=== PATIENT | male | born 1950 | race Caucasian/White ===

== ENCOUNTER 2020-12-10 06:53 | Outpatient (REF) | payer MEDICARE, SELFPAY ==
[2020-12-10 08:29] LABS: Glucose Urine UA NEG (NEG); Leukocyte Esterase Urine NEG (NEG); Nitrite Urine NEG (NEG); Specific Gravity - Urine 1.025 (1.005-1.025); Urine Blood TRACE (NEG); Urine Ketones NEG (NEG); Urine Protein TRACE MG/DL (NEG-TRACE)
[2020-12-10 08:31] LABS: Appearance Urine CLEAR; Color Urine YELLOW
[2020-12-10 08:42] LABS: Mucus Urine 1+ /LPF; WBC Urine 0 /HPF (0-4)
== END 2020-12-10 06:54 | disposition home or self-care (01) ==
LOC: HO.LAB 06:53
PROVIDERS: PCP Nurse Practitioner Family; Visit Provider Urology
DX: R30.0 Dysuria (principal)
CPT/HCPCS: 81001; 87086

== ENCOUNTER 2023-04-23 07:02 | Outpatient (REF) | payer MEDICARE, SELFPAY | END 2023-04-23 07:03 | disposition home or self-care (01) | LOC: HO.LAB 07:02 | PROVIDERS: PCP Nurse Practitioner Family; Visit Provider Nurse Practitioner Family | DX: Z13.220 Encounter for screening for lipoid disorders (principal); Z13.29 Encounter for screening for other suspected endocrine disorder; Z13.0 Encounter for screening for diseases of the blood and blood-forming organs and certain disorders involving the immune mechanism; E78.00 Pure hypercholesterolemia, unspecified | CPT/HCPCS: 36415; 80053; 80061; 84443; 85025 ==

== ENCOUNTER 2023-04-25 06:45 | Outpatient (REF) | payer MEDICARE, SELFPAY | END 2023-04-25 06:46 | disposition home or self-care (01) | LOC: HO.LAB 06:45 | PROVIDERS: PCP Nurse Practitioner Family; Visit Provider Nurse Practitioner Family | DX: Z01.818 Encounter for other preprocedural examination (principal); H02.409 Unspecified ptosis of unspecified eyelid | CPT/HCPCS: 93005 ==

== ENCOUNTER → 2023-04-25 06:55 | Outpatient (BNV) | payer MEDICARE, SELFPAY | PROVIDERS: PCP Nurse Practitioner Family; Visit Provider Internal Medicine Cardiovascular Disease | DX: I49.1 Atrial premature depolarization (principal); R94.31 Abnormal electrocardiogram [ECG] [EKG] | CPT/HCPCS: 93010 ==

== ENCOUNTER 2023-04-27 09:04 | Outpatient (REF) | payer MEDICARE, SELFPAY ==
[2023-04-27 12:35] LABS: Alanine Aminotransferase 21 U/L (0-40); Albumin Level 4.1 g/dL (3.5-5.0); Alkaline Phosphatase 93 U/L (39-117); Anion Gap 12 (12-20); Aspartate Amino Transferase 32 U/L (5-37); Bilirubin Total 0.8 mg/dL (0.0-1.0); Blood Urea Nitrogen 16 mg/dL (9-16); Calcium 9.7 mg/dL (8.4-10.2); Carbon Dioxide 26 mmol/L (22-29); Chloride 106 mmol/L (96-108); Estimated Glomerular Filt Rate > 60; Glucose Random 92 mg/dL (60-115); Potassium 3.8 mmol/L (3.3-5.1); Sodium 140 mmol/L (135-145); Total Protein 7.2 g/dL (6.5-8.0)
== END 2023-04-27 09:05 | disposition home or self-care (01) ==
LOC: HO.HMGCLDS 09:04
PROVIDERS: PCP Nurse Practitioner Family; Visit Provider Nurse Practitioner Family
DX: E83.52 Hypercalcemia (principal)
CPT/HCPCS: 36415; 80053

== ENCOUNTER 2023-07-04 04:03 | Emergency (ER) | payer MEDICARE, SELFPAY ==
[2023-07-04 04:16] VITALS: BP 191/99; PULSE 86; RESP 20; TEMP 36.6; O2SAT 97; BMI 27.0
[2023-07-04 04:27] VITALS: BP 177/105; PULSE 87; RESP 18; O2SAT 97
[2023-07-04 04:35] LABS: Appearance Urine Turbid; Color Urine RED; Glucose Urine UA 100 mg/dL (Negative); Leukocyte Esterase Urine Moderate (2+) (Negative); UMIC TRIGGER UACC YES; Urine Blood Large (3+) (Negative); Urine Ketones 15 mg/dL (Negative); Urine Protein 300 (3+) mg/dL (Neg-Trace)
[2023-07-04 04:37] LABS: Nitrite Urine Positive (Negative)
[2023-07-04 04:38] LABS: Bacteria Urine Trace (None Seen); Hyaline Casts Urine 0-2 /LPF (0-2); RBC Urine >20 /HPF (0-2); Squamous Epithelial Cell Urine 0-2 /HPF (0-2); UACC Culture Trigger YES; WBC Urine 0-5 /HPF (0-5)
[2023-07-04 05:05] LABS: Hematocrit 42.9 % (42.0-52.0); Hemoglobin 15.2 g/dl (14.0-18.0); Mean Corpuscular HGB Conc 35.4 g/dl (31.0-36.0); Mean Corpuscular Hemoglobin 31.3 pg (27.0-33.0); Mean Corpuscular Volume 88.5 fL (80.0-98.0); Mean Platelet Volume 10.3 fL (9.4-12.4); Platelet Count 266 X10*3/uL (160-400); Red Blood Count 4.85 X10*6/uL (4.60-5.80); Red Cell Distribution Width 12.5 % (11.0-16.0); White Blood Count 8.8 X10*3/uL (4.8-10.8)
--- NOTE | 2023-07-04 05:12 | PC.NURSE ---
Pt with hematuria, reporting clots prior to coming with pain. Pt reports no clots and no pain but hematuria still present. labs and urine sent.
[2023-07-04 05:20] LABS: Alanine Aminotransferase 45 U/L (0-40); Albumin Level 4.1 g/dL (3.5-5.0); Alkaline Phosphatase 107 U/L (39-117); Anion Gap 14 (12-20); Aspartate Amino Transferase 65 U/L (5-37); Bilirubin Total 0.5 mg/dL (0.0-1.0); Blood Urea Nitrogen 9 mg/dL (9-16); Calcium 9.4 mg/dL (8.4-10.2); Carbon Dioxide 23 mmol/L (22-29); Chloride 104 mmol/L (96-108); Creatinine Clr Calc Pharmacy 89.6; Estimated Glomerular Filt Rate > 60; Glucose Random 131 mg/dL (60-115); Potassium 3.6 mmol/L (3.3-5.1); Sodium 137 mmol/L (135-145); Total Protein 7.1 g/dL (6.5-8.0)
[2023-07-04 06:25] VITALS: BP 147/82; PULSE 85; RESP 18; TEMP 36.7; O2SAT 98
--- NOTE | 2023-07-04 06:26 | MHC.EDTECH ---
Hourly rounds and vitals completed. Patient urinated 600cc of bloody urine,patient had a few clots in urinal, RN is aware.
--- NOTE | 2023-07-04 06:37 | ED.MALEGU ---
HPI - Male Genitourinary General Chief complaint: Urogenital-Male Stated complaint: Blood in urine Time Seen by Provider: 07/04/23 06:36 Source: patient, RN notes reviewed and old records reviewed Mode of arrival: ambulatory History of Present Illness HPI Narrative: 73-year-old male with a past medical history a BPH s/p cystoscopy, HLD, HTN, depression, transient global amnesia, presenting to the ED complaining of gross hematuria with clots x2 days. Admits to drinking apple cider vinegar for URI symptoms which he believes triggered symptoms. Denies taking anticogulation. reports mild dysuria. Denies fever /chills, abdominal pain, flank pain, nausea / vomiting, lightheadedness/dizziness Related Data Previous Rx's Medication Instructions Recorded cefuroxime axetil 250 mg tablet 250 mg PO BID 4 days #8 tabs 07/04/23 Allergies Allergy/AdvReac Type Severity Reaction Status Date / Time No Known Allergies Allergy Verified 07/04/23 04:16 [No Known Allergies*] Review of Systems Review of Systems: Constitutional: No Fever, No Chills, No Fatigue, No Malaise ENT/Mouth: No Ear Pain, No Nasal Congestion,No sore throat, No Rhinorrhea, No Swallowing Difficulty Eyes: No Eye Pain, No Swelling, No Redness, No Vision Changes Cardiovascular: No Chest Pain, No SOB Respiratory: No Cough, No Sputum, No Dyspnea Gastrointestinal: No Nausea, No Vomiting, No Diarrhea, No Constipation, No Abdominal pain Genitourinary: No irregular bleeding, + Dysuria, No Urinary Frequency, + Hematuria, No Urinary Incontinence/retention, No Flank Pain Musculoskeletal: No joint pain, No Myalgias, No Joint Swelling Skin: No Skin Lesions, No rash Neuro: No Weakness, No Dizziness, No Headache Yes all other systems are reviewed and are negative Constitutional: Constitutional: Reports as per [facility] Past Medical History Attestation statement: The following information was validated with the patient. Source: old records reviewed Medical History Transient global amnesia History of depression White coat 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 hypertension Cataracts, both eyes High cholesterol Enlarged prostate Surgical History H/O transurethral resection of prostate Hx of tonsillectomy Family History Family History Mother Glaucoma Cataract Social History Social History Housing: House Alcohol intake: current Alcohol intake frequency: holidays/special occasions only Alcohol type: hard liquor Patient Tobacco Use Status: Never used Tobacco Smoked in Last 30 Days: No e-Cigarette/Vaping Use: Never Used Use of substances other than those prescribed or required for medical reasons: No Advance Directives: No Advance Directives Information Provided: Yes service: Yes Current occupational status: retired Cognitive needs: No Hearing needs: No Vision needs: Yes Physical Exam Vital Signs: Vital Signs: Last Vital Signs Temp 97.9 F 07/04/23 13:27 Pulse 79 07/04/23 13:27 Resp 16 07/04/23 13:27 BP 169/84 H 07/04/23 13:27 Pulse Ox 96 07/04/23 13:27 O2 Del Method Room Air 07/04/23 13:27 BMI result Body Mass Index 27.0 Const: General: cooperative, healthy appearing and no acute distress Orientation/consciousness: patient oriented x3 Limitations: no limitations HEENT: Head: Yes normal to inspection and Yes atraumatic Ears: hearing grossly normal bilaterally General nose exam: Normal external nose present Face and sinus: Yes normal facial exam Eyes: General: appearance normal, both eyes and all related structures EOM: EOMs intact bilaterally Neck: Neck: Yes normal visual inspection and Yes no meningeal signs Resp: Effort & Inspection: normal respiratory effort and no respiratory distress Auscultation: clear to auscultation bilaterally Cardio: Rate: regular rate Heart sounds: S1 normal heart sound present and S2 normal heart sound present GI: Inspection: Yes normal to inspection Palpation (GI): Soft to palpation, nontender, no guarding and not rigid : General: Yes no CVA tenderness Back/Spine/Pelvis: Back: no CVA tenderness Skin: Rashes: no rashes Wounds: no wounds Neuro: General: patient oriented x3, tone normal and no meningeal signs Cranial nerves: Yes CN's II-XII intact bilaterally Gait exam (Neuro): Normal gait present Extrem: General: Yes normal to inspection Course Course Course Narrative: -1974-- multiple times at [facility] placement for CBI however unsuccessful. Case discussed with Dr. Maher who is currently in the OR, will present to the ED after case - no leukocytosis. H&H stable. Mild elevation in AST/ ALT. Labs otherwise reassuring. - UA infected > given IV Rocephin -Dr. Maher placed 2-way catheter under video guidance in the ED, states no active bleeding in the bladder > CBI not needed >> recommended manual irrigation and PO abx x3-5 days & f/u in the office > manual irrigation performed in the ED with improvement in gross hematuria, pink tinged. Results discussed with patient including worrisome signs and symptoms and strict return precautions, and when to return to the emergency department. They verbalized understanding and feel safe for discharge at this time. Medications Administered Discontinued Medications Generic Name Dose Route Start Last Admin Trade Name Freq PRN Reason Stop Dose Admin Ceftriaxone Sodium 1 gm/ 50 mls @ 100 mls/hr 07/04/23 06:46 07/04/23 08:51 Sodium Chloride IV 07/04/23 07:15 Infused ONCE ONE Infusion Lidocaine HCl 10 ml 07/04/23 08:00 07/04/23 08:51 Lidocaine Hcl 2 % Urojet 10 Ml Jel.Pf.Cesilia TOPICAL 07/04/23 08:01 10 ml ONCE ONE Administration Medical Decision Making Medical Decision Making [facility] Narrative: 73-year-old male with a past medical history a BPH s/p cystoscopy, HLD, HTN, depression, transient global amnesia, presenting to the ED complaining of gross hematuria with clots x2 days. on exam vital signs stable, NAD, nontoxic appearing, abdomen soft/nontender, no CVAT. Gross hematuria noted. Concern for BPH vs UTI vs anemia. Lower suspicion for retention/renal stone. Unlikely to spiculated torsion, appendicitis/ diverticulitis plan: Labs, UA, CBI, +/- Consult Urology Please refer to course for remaining clinical decision making, interpretation of labs/imaging results, and discussions with consultants and/or family members. Differential Diagnosis Differential Diagnoses: The differential diagnosis associated with the presentation includes As above Admission/Observation Consideration of admission/observation: Escalation of care including admission/observation considered Lab Data [facility] Lab Attestation statement: I reviewed the patient's lab results. 07/04/23 05:00 07/04/23 05:00 Labs: Lab Results 07/04/23 07/04/23 07/04/23 Range/Units 04:22 05:00 07:20 WBC 8.8 (4.8-10.8) X10*3/uL RBC 4.85 (4.60-5.80) X10*6/uL Hgb 15.2 (14.0-18.0) g/dl Hct 42.9 (42.0-52.0) % MCV 88.5 (80.0-98.0) fL MCH 31.3 (27.0-33.0) pg MCHC 35.4 (31.0-36.0) g/dl RDW 12.5 (11.0-16.0) % Plt Count 266 (160-400) X10*3/uL MPV 10.3 (9.4-12.4) fL Absolute Nucleated RBC 0.000 (0.0-0.012) X10*3/uL Nucleated RBC % (auto) 0.0 (0.0-0.2) /100WBC PT (11.1-13.3) SEC INR (0.9-1.1) Sodium 137 (135-145) mmol/L Potassium 3.6 (3.3-5.1) mmol/L Chloride 104 (96-108) mmol/L Carbon Dioxide 23 (22-29) mmol/L Anion Gap 14 (12-20) BUN 9 (9-16) mg/dL Creatinine 0.71 (0.5-1.4) mg/dL Estim Creat Clear Calc 89.6 Estimated GFR > 60 Random Glucose 131 H (60-115) mg/dL Calcium 9.4 (8.4-10.2) mg/dL Total Bilirubin 0.5 (0.0-1.0) mg/dL AST 65 H (5-37) U/L ALT 45 H (0-40) U/L Alkaline Phosphatase 107 (39-117) U/L Total Protein 7.1 (6.5-8.0) g/dL Albumin 4.1 (3.5-5.0) g/dL Urine Color RED Urine Appearance Turbid Urine pH 7.0 (5.0-9.0) Ur Specific [place] 1.010 (1.005-1.025) Urine Protein 300 (3+) H (Neg-Trace) mg/dL Urine Glucose (UA) 100 H (Negative) mg/dL Urine Ketones 15 (Negative) mg/dL Urine Blood Large (3+) H (Negative) Urine Nitrite Positive H (Negative) Ur Leukocyte Esterase Moderate (2+) H (Negative) Urine RBC >20 H (0-2) /HPF Urine WBC 0-5 (0-5) /HPF Ur Squamous Epith Cells 0-2 (0-2) /HPF Urine Bacteria Trace (None Seen) Hyaline Casts 0-2 (0-2) /LPF COVID-19 (RADHA) Negative (Negative) COVID-19 Clin Com See Note 07/04/23 Range/Units 07:21 WBC (4.8-10.8) X10*3/uL RBC (4.60-5.80) X10*6/uL Hgb (14.0-18.0) g/dl Hct (42.0-52.0) % MCV (80.0-98.0) fL MCH (27.0-33.0) pg MCHC (31.0-36.0) g/dl RDW (11.0-16.0) % Plt Count (160-400) X10*3/uL MPV (9.4-12.4) fL Absolute Nucleated RBC (0.0-0.012) X10*3/uL Nucleated RBC % (auto) (0.0-0.2) /100WBC PT 12.6 (11.1-13.3) SEC INR 1.0 (0.9-1.1) Sodium (135-145) mmol/L Potassium (3.3-5.1) mmol/L Chloride (96-108) mmol/L Carbon Dioxide (22-29) mmol/L Anion Gap (12-20) BUN (9-16) mg/dL Creatinine (0.5-1.4) mg/dL Estim Creat Clear Calc Estimated GFR Random Glucose (60-115) mg/dL Calcium (8.4-10.2) mg/dL Total Bilirubin (0.0-1.0) mg/dL AST (5-37) U/L ALT (0-40) U/L Alkaline Phosphatase (39-117) U/L Total Protein (6.5-8.0) g/dL Albumin (3.5-5.0) g/dL Urine Color Urine Appearance Urine pH (5.0-9.0) Ur Specific [place] (1.005-1.025) Urine Protein (Neg-Trace) mg/dL Urine Glucose (UA) (Negative) mg/dL Urine Ketones (Negative) mg/dL Urine Blood (Negative) Urine Nitrite (Negative) Ur Leukocyte Esterase (Negative) Urine RBC (0-2) /HPF Urine WBC (0-5) /HPF Ur Squamous Epith Cells (0-2) /HPF Urine Bacteria (None Seen) Hyaline Casts (0-2) /LPF COVID-19 (RADHA) (Negative) COVID-19 Clin Com Radiology Impression Discussion of test interpretation with radiology: I have reviewed the radiologist's reading. Independent Historian Clinical information obtained from an independent historian. History obtained from or confirmed by: Spouse External Record Review External record reviewed: Inpatient record, Office record, Outpatient record, Prior outpatient labs, Prior outpatient radiology, Primary care record and Outside ED record Tests considered The following testing was considered but not selected: As above Prescription Management I considered prescription management with: Pain Medication and Antibiotic Chronic Conditions Patient?s care impacted by: Hypertension and Other (BPH) Discharge Plan Discharge Clinical Impression: Gross hematuria, Acute UTI Patient Disposition: Home, Self-Care Instructions: Urinary Tract Infection in Men (DC), Hematuria (ED) Additional Instructions: you have a urinary tract infection Ceftin is an antibiotic please take as prescribed Your bladder was irrigated in the emergency department, you were given a dose of IV antibiotics Urology recommended close outpatient follow up, call the office to make an appointment next week if symptoms persist or worsen, you are unable to pee have persistent or worsening abdominal pain, fever/chills return to the ED Prescriptions: New cefuroxime axetil 250 mg tablet 250 mg PO BID 4 Days Qty: 8 0RF Referrals: [facility] – [place] [facility] [Provider Group] - 5 days
--- NOTE | 2023-07-04 06:38 | PC.NURSE ---
aware of pts bloody urine, pt reports improving. No more clots or pain.
[2023-07-04] MEDS: cefTRIAXone sodium 1 GM in 0.9 % Sodium Chloride 50 ML IV (07:24)
[2023-07-04 07:36] LABS: Prothrombin Time 12.6 SEC (11.1-13.3)
[2023-07-04 08:01] LABS: COVID-19 Test Negative (Negative); IDNOW Serial# 6674DD1D
[2023-07-04 08:49] VITALS: BP 152/96; PULSE 88; RESP 16; O2SAT 95
--- NOTE | 2023-07-04 08:49 | PC.NURSE ---
attempt to insert 3-way rojas; unable to 2x; provider at bedside to attempt as well. plan to reach out to urology. pt tolerating well.
[2023-07-04] MEDS: Lidocaine HCl 2 % Urojet 10 ML JEL.PF.APP TOPICAL (08:51)
[2023-07-04 10:23] VITALS: BP 153/80; PULSE 78; RESP 18; O2SAT 96
--- NOTE | 2023-07-04 10:41 | PC.NURSE ---
pt able to urinate without pain; bloody urine. awaiting uro.
--- NOTE | 2023-07-04 13:20 | PC.NURSE ---
900 mL urine voided; pt reports some pain initially which resolves while urinating. 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 pt reports initial stream bloody then clear. Dr. Menendez reported to be en route to ed. awaiting arrival.
[2023-07-04 13:27] VITALS: BP 169/84; PULSE 79; RESP 16; TEMP 36.6; O2SAT 96
--- NOTE | 2023-07-04 13:45 | PC.NURSE ---
Addendum entered by Ramu Alvarez 07/04/23 14:11: leg bag placed. will give pt rojas bag to take home. educated on how to change bags; pt able to demonstrate to this RN. Addendum entered by Ramu Alvarez 07/04/23 14:10: 20 FR rojas inserted with guide wire. 200 mL output light pink in color. pt tolerated well. Original Note: Dr. Menendez at bedside for rojas insertion. per Dr. Menendez CBI is not needed;
--- NOTE | 2023-07-04 15:16 | PC.NURSE ---
manual irrigation per Susan BELTRAN order; 60 mL in 60 ml output; pt denies pain with irrigation. 100mL urine present in ubag prior to irrigation. pink-tinged urine.
--- NOTE | 2023-07-04 15:39 | P.CNUR_ITS ---
History of Present Illness Consult details Consult date: 07/04/23 Narrative: CC: Urinary retention/nursing unable to place Rojas catheter HPI: Present to hospital with hematuria. Known BPH. Prior procedures that were noted to have hematuria Nursing staff have tried to place Rojas multiple times Cystoscopy performed at bedside - a disposable cystoscope this was advanced and urethra. False passage was seen. Advanced anteriorly into the bladder. Bladder exam. Some regrowth in the prostatic fossa. Minimal hematuria within the bladder. A Sensor guidewire placed Two-way Rojas catheter with 30 cc balloon placed over wire Clear reflux CPT 57848 (includes difficult rojas catheter placement) Review of Systems 2 Constitutional: Constitutional: Reports as per HPI and Reports no additional constitutional complaints Cardiovascular: Cardiovascular: Reports as per HPI and Reports no additional cardiovascular complaints Respiratory: Respiratory: Reports as per HPI and Reports no additional respiratory complaints Gastrointestinal: Gastrointestinal: Reports as per HPI and Reports no additional gastrointestinal complaints Genitourinary: Genitourinary: Reports as per HPI Musculoskeletal: Musculoskeletal: Reports no additional musculoskeletal complaints and Reports as per HPI Neurologic: Reports system reviewed and no additional complaints, except as documented and Reports as per HPI PMFSH Past Medical History Medical History Transient global amnesia History of depression White coat 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 hypertension Cataracts, both eyes High cholesterol Enlarged prostate Family History Family History Mother Glaucoma Cataract Surgical History Surgical History H/O transurethral resection of prostate Hx of tonsillectomy Social History Social History Housing: House Alcohol intake: current Alcohol intake frequency: holidays/special occasions only Alcohol type: hard liquor Patient Tobacco Use Status: Never used Tobacco Smoked in Last 30 Days: No e-Cigarette/Vaping Use: Never Used Use of substances other than those prescribed or required for medical reasons: No Advance Directives: No Advance Directives Information Provided: Yes service: Yes Current occupational status: retired Cognitive needs: No Hearing needs: No Vision needs: Yes Meds Allergies Allergy/AdvReac Type Severity Reaction Status Date / Time No Known Allergies Allergy Verified 07/04/23 04:16 [No Known Allergies*] Physical Exam 2 Vital Signs: Vital Signs: Last Vital Signs Temp 97.9 F 07/04/23 13:27 Pulse 79 07/04/23 13:27 Resp 16 07/04/23 13:27 BP 169/84 H 07/04/23 13:27 Pulse Ox 96 07/04/23 13:27 O2 Del Method Room Air 07/04/23 13:27 BMI result Body Mass Index 27.0 Const: General: cooperative, healthy appearing, comfortable and no acute distress Orientation/consciousness: patient oriented x3 HEENT: Face and sinus: Yes normal facial exam Mouth: moist mucous membranes Neck: Neck: Yes normal visual inspection, Yes full ROM and Yes trachea midline Chest: Chest palpation & inspection: normal inspection of the chest Resp: Effort & Inspection: normal respiratory effort, able to speak in complete sentences and no respiratory distress GI: Inspection: Yes normal to inspection Back/Spine/Pelvis: Cervical Spine: normal cervical lordosis Thoracic/Lumbar Spine: thoracic and lumbar spine normal to inspection Skin: General skin exam: no rashes or lesions noted Neuro: General: patient oriented x3, tone normal and moves all extremities Extrem: General: Yes normal to inspection and Yes capillary refill normal Results Labs 07/04/23 05:00 07/04/23 05:00 Labs: Abnormal lab results 07/04/23 07/04/23 Range/Units 04:22 05:00 Random Glucose 131 H (60-115) mg/dL AST 65 H (5-37) U/L ALT 45 H (0-40) U/L Urine Protein 300 (3+) H (Neg-Trace) mg/dL Urine Glucose (UA) 100 H (Negative) mg/dL Urine Blood Large (3+) H (Negative) Urine Nitrite Positive H (Negative) Ur Leukocyte Esterase Moderate (2+) H (Negative) Urine RBC >20 H (0-2) /HPF Short CBC 07/04/23 Range/Units 05:00 WBC 8.8 (4.8-10.8) X10*3/uL Hgb 15.2 (14.0-18.0) g/dl Hct 42.9 (42.0-52.0) % Plt Count 266 (160-400) X10*3/uL BMP 07/04/23 05:00 Sodium 137 Potassium 3.6 Chloride 104 Carbon Dioxide 23 BUN 9 Creatinine 0.71 Calcium 9.4 Liver Function 07/04/23 Range/Units 05:00 Total Bilirubin 0.5 (0.0-1.0) mg/dL AST 65 H (5-37) U/L ALT 45 H (0-40) U/L Alkaline Phosphatase 107 (39-117) U/L Albumin 4.1 (3.5-5.0) g/dL Urine 07/04/23 Range/Units 04:22 Urine Color RED Urine Appearance Turbid Urine pH 7.0 (5.0-9.0) Ur Specific [place] 1.010 (1.005-1.025) Urine Protein 300 (3+) H (Neg-Trace) mg/dL Urine Glucose (UA) 100 H (Negative) mg/dL All other labs normal. Assessment and Plan (1) Difficult Rojas catheter placement: Status: Acute Plan catheter remain for approximately 1 week Time Spent With Patient Time: Total time managing care of this patient today ____ minutes. Procedures Date of Service Date of Service: 07/04/23
== END 2023-07-04 15:43 | disposition home or self-care (01) ==
PROVIDERS: Physician Assistant; Emergency Provider Emergency Medicine
DX: R31.9 Hematuria, unspecified (principal); N39.0 Urinary tract infection, site not specified; Z20.822 Contact with and (suspected) exposure to COVID-19; Z20.828 Contact with and (suspected) exposure to other viral communicable diseases; Z79.899 Other long term (current) drug therapy
CPT/HCPCS: 36415; 80053; 81001; 85027; 85610; 87086; 87635; 96365; 96366; 99284; 99285; J0696

== ENCOUNTER → 2023-07-04 04:51 | Outpatient (BNV) | payer MEDICARE, SELFPAY | PROVIDERS: Emergency Provider Emergency Medicine; Visit Provider Urology | DX: R31.9 Hematuria, unspecified (principal); R33.9 Retention of urine, unspecified | CPT/HCPCS: 52000; 99284 ==

== ENCOUNTER 2023-07-05 15:30 | Emergency (ER) | payer MEDICARE, SELFPAY ==
--- NOTE | ~2023-07-05 | XR_ITS ---
EXAMINATION: XR CHEST CLINICAL INFORMATION: Cough with question of infiltrate COMPARISON: None available. TECHNIQUE: Frontal view of the chest was obtained. FINDINGS: Heart size upper limits of normal to mildly enlarged. No evidence of CHF. There is an area of atelectasis/infiltrate seen in the retrocardiac region at the left lung base. No pleural effusions. XR/XR chest 1V IMPRESSION: Left lower lobe infiltrate/atelectasis.
[2023-07-05 15:41] VITALS: BP 153/83; PULSE 94; RESP 18; TEMP 36.7; O2SAT 98; BMI 27.5
--- NOTE | 2023-07-05 15:42 | ED_ITS ---
HPI - Male Genitourinary General Chief complaint: General Medical Stated complaint: Catheter issues Time Seen by Provider: 07/05/23 20:55 Source: patient Mode of arrival: ambulatory Limitations: no limitations History of Present Illness HPI Narrative: Patient with BPH had difficulty Luke catheter placement yesterday by urologist comes here today as noticed decreased urine output. Patient did not drink much fluid today. Taking nitrofurantoin for UTI no significant abdominal pain or fever no nausea no vomiting when patient arrived was small amount of urine noticed BladderScan shows only 18 mL of urine Related Data Previous Rx's Medication Instructions Recorded cefuroxime axetil 500 mg tablet 500 mg PO BID 10 days #20 tabs 07/05/23 nitrofurantoin 100 mg PO BID 5 days #10 caps 07/05/23 monohydrate/macrocrystals 100 mg capsule (Macrobid) Allergies Allergy/AdvReac Type Severity Reaction Status Date / Time No Known Allergies Allergy Verified 07/04/23 04:16 [No Known Allergies*] Review of Systems 2 Review of Systems: Yes all other systems are reviewed and are negative PMFSH Past Medical History Medical History Transient global amnesia History of depression White coat 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 hypertension Cataracts, both eyes High cholesterol Enlarged prostate Surgical History H/O transurethral resection of prostate Hx of tonsillectomy Family History Family History Mother Glaucoma Cataract Social History Social History Housing: House Alcohol intake: current Alcohol intake frequency: a few times a week Alcohol type: hard liquor Patient Tobacco Use Status: Never used Tobacco Smoked in Last 30 Days: No e-Cigarette/Vaping Use: Never Used Use of substances other than those prescribed or required for medical reasons: No Advance Directives: No Advance Directives Information Provided: No service: Yes Current occupational status: retired Cognitive needs: No Hearing needs: No Vision needs: Yes Physical Exam 2 Vital Signs: Vital Signs: Last Vital Signs Temp 98.3 F 07/05/23 23:38 Pulse 82 09/19/23 23:38 Resp 17 07/05/23 23:38 BP 149/93 H 07/05/23 23:38 Pulse Ox 94 07/05/23 23:38 O2 Del Method Room Air 07/05/23 23:38 BMI result Body Mass Index 27.5 Appearance: Alert. Oriented X3. No acute distress. Eyes: PERRLA, No Nystagmus ENT: Pharynx normal. Oral Mucosa moist Neck: Normal inspection. Neck supple. CVS: Normal heart rate and rhythm. Pulses normal. Respiratory: No respiratory distress. Equal air entry bilateral, no wheezing/rales/rhonchi Abdomen: Soft and nontender. Bowel sounds are present, no mass palpable, no CVA tenderness Skin: Skin warm and dry. Normal skin color. Normal skin turgor. Extremities: No lower extremity edema. No calf tenderness Neuro: Oriented X 3. Course Course Course Narrative: This is an RME: Additional HPI, ROS, PE not included below will be deferred to primary provider. This is a [id number]-male, with a past medical history of BPH s/p cystoscopy, HLD, HTN, depression, transient global amnesia, presenting to the ER with complaints of gross hematuria with clots. He was seen by Dr. Maher yesterday where he was placed with a 2 way catheter under video guidance in the ER. He states that the catheter is blocked, and he is now leaking around the catheter. Plan: Repeat labs, UA, further ER evaluation noted. Medications Administered Discontinued Medications Generic Name Dose Route Start Last Admin Trade Name Freq PRN Reason Stop Dose Admin Ceftriaxone Sodium 1 gm/ 50 mls @ 100 mls/hr 07/05/23 21:51 07/05/23 23:22 Sodium Chloride IV 07/05/23 22:20 Infused ONCE ONE Infusion Sodium Chloride 1,000 mls @ 999 mls/hr 07/05/23 21:51 07/05/23 23:46 Ns IV 07/05/23 22:51 Infused .Q1H1M ONE Infusion Medical Decision Making Medical Decision Making MDM Narrative: Bladder irrigation done significant retention noticed. Luke catheter was working and after p.o. challenge patient started making urine labs were stable. Urine still showing WBC which were increased ,will discharge patient home on Ceftin as has better coverage than Macrobid Lab Data [facility] Lab Attestation statement: I reviewed the patient's lab results. 07/05/23 15:58 07/05/23 15:58 Labs: Lab Results 07/05/23 07/05/23 Range/Units 15:58 20:58 WBC 16.3 H (4.8-10.8) X10*3/uL RBC 4.37 L (4.60-5.80) X10*6/uL Hgb 14.8 (14.0-18.0) g/dl Hct 40.6 L (42.0-52.0) % MCV 92.9 (80.0-98.0) fL MCH 33.9 H (27.0-33.0) pg MCHC 36.5 H (31.0-36.0) g/dl RDW 13.3 (11.0-16.0) % Plt Count 311 (160-400) X10*3/uL MPV 10.2 (9.4-12.4) fL Immature Gran % (Auto) 0.4 (0.0-0.4) % Neut % (Auto) 84.9 H (45-73) % Lymph % (Auto) 6.9 L (20-40) % [place] % (Auto) 7.5 (2-11) % Eos % (Auto) 0.1 (0-4) % Baso % (Auto) 0.2 (0-2) % Lymph # (Auto) 1.1 L (1.2-4.9) X10*3/uL [place] # (Auto) 1.2 (0.1-1.2) X10*3/uL Eos # (Auto) 0.0 (0.0-0.4) X10*3/uL Baso # (Auto) 0.0 (0.0-0.2) X10*3/uL Abs Immat Gran (auto) 0.07 H (0.00-0.03) X10*3/uL Absolute Neuts (auto) 13.8 H (2.0-8.3) x10*3/uL Absolute Nucleated RBC 0.000 (0.0-0.012) X10*3/uL Nucleated RBC % (auto) 0.0 (0.0-0.2) /100WBC Sodium 137 (135-145) mmol/L Potassium 3.9 (3.3-5.1) mmol/L Chloride 106 (96-108) mmol/L Carbon Dioxide 22 (22-29) mmol/L Anion Gap 13 (12-20) BUN 15 (9-16) mg/dL Creatinine 0.82 (0.5-1.4) mg/dL Estim Creat Clear Calc 77.6 Estimated GFR > 60 Random Glucose 133 H (60-115) mg/dL Calcium 9.7 (8.4-10.2) mg/dL Total Bilirubin 0.7 (0.0-1.0) mg/dL Direct Bilirubin 0.3 (0.0-0.5) mg/dL AST 72 H (5-37) U/L ALT 49 H (0-40) U/L Alkaline Phosphatase 108 (39-117) U/L Total Protein 7.3 (6.5-8.0) g/dL Albumin 4.1 (3.5-5.0) g/dL Urine Color BROWN Urine Appearance Cloudy Urine pH 5.0 (5.0-9.0) Ur Specific [place] 1.025 (1.005-1.025) Urine Protein 300 (3+) H (Neg-Trace) mg/dL Urine Glucose (UA) Negative (Negative) mg/dL Urine Ketones 40 (Negative) mg/dL Urine Blood Large (3+) H (Negative) Urine Nitrite Positive H (Negative) Ur Leukocyte Esterase Small (1+) H (Negative) Urine RBC >20 H (0-2) /HPF Urine WBC >50 H (0-5) /HPF Ur Squamous Epith Cells 0-2 (0-2) /HPF Urine Bacteria Trace (None Seen) Hyaline Casts 6-10 (0-2) /LPF Urine Yeast Present Discharge Plan Discharge Clinical Impression: UTI (urinary tract infection) due to urinary indwelling catheter Patient Disposition: Home, Self-Care Instructions: Catheter-associated Urinary Tract Infection (ED) Additional Instructions: Drink plenty of fluids Antibiotic as prescribed Follow-up with urologist Prescriptions: New cefuroxime axetil 500 mg tablet 500 mg PO BID 10 Days Qty: 20 0RF No Action nitrofurantoin monohyd/m-cryst [Macrobid] 100 mg capsule 100 mg PO BID 5 Days Qty: 10 0RF Rx Instructions: must administer with a meal/food Interventions: ED Discharge Assessment Last Done: 07/05/23 23:58 Discharge Date/Time: 07/05/23 23:59
[2023-07-05 16:02] LABS: MANUAL DIFF FLAG NO
[2023-07-05 16:07] LABS: Hematocrit 40.6 % (42.0-52.0); Hemoglobin 14.8 g/dl (14.0-18.0); Red Blood Count 4.37 X10*6/uL (4.60-5.80); White Blood Count 16.3 X10*3/uL (4.8-10.8)
[2023-07-05 16:08] LABS: Basophils Percent Auto 0.2 % (0-2); Eosinophils Percent Auto 0.1 % (0-4); Imm Gran Abs Auto 0.07 X10*3/uL (0.00-0.03); Imm Gran Pct Auto 0.4 % (0.0-0.4); Lymphocytes Absolute Auto 1.1 X10*3/uL (1.2-4.9); Lymphocytes Percent Auto 6.9 % (20-40); Mean Corpuscular HGB Conc 36.5 g/dl (31.0-36.0); Mean Corpuscular Hemoglobin 33.9 pg (27.0-33.0); Mean Corpuscular Volume 92.9 fL (80.0-98.0); Mean Platelet Volume 10.2 fL (9.4-12.4); Monocytes Absolute Auto 1.2 X10*3/uL (0.1-1.2); Monocytes Percent Auto 7.5 % (2-11); Neutrophils Absolute Auto 13.8 x10*3/uL (2.0-8.3); Neutrophils Percent Auto 84.9 % (45-73); Platelet Count 311 X10*3/uL (160-400); Red Cell Distribution Width 13.3 % (11.0-16.0)
[2023-07-05 16:18] LABS: Alanine Aminotransferase 49 U/L (0-40); Albumin Level 4.1 g/dL (3.5-5.0); Alkaline Phosphatase 108 U/L (39-117); Anion Gap 13 (12-20); Aspartate Amino Transferase 72 U/L (5-37); Bilirubin Direct 0.3 mg/dL (0.0-0.5); Blood Urea Nitrogen 15 mg/dL (9-16); Calcium 9.7 mg/dL (8.4-10.2); Carbon Dioxide 22 mmol/L (22-29); Chloride 106 mmol/L (96-108); Creatinine Clr Calc Pharmacy 77.6; Estimated Glomerular Filt Rate > 60; Glucose Random 133 mg/dL (60-115); Potassium 3.9 mmol/L (3.3-5.1); Sodium 137 mmol/L (135-145); Total Protein 7.3 g/dL (6.5-8.0)
[2023-07-05 18:04] LABS: Bilirubin Total 0.7 mg/dL (0.0-1.0)
[2023-07-05 20:54] VITALS: BP 153/98; PULSE 97; RESP 14; TEMP 36.9; O2SAT 97
[2023-07-05 21:06] LABS: Appearance Urine Cloudy; Color Urine BROWN; Glucose Urine UA Negative (Negative); Leukocyte Esterase Urine Small (1+) (Negative); Nitrite Urine Positive (Negative); Specific Gravity - Urine 1.025 (1.005-1.025); UMIC TRIGGER UACC YES; Urine Blood Large (3+) (Negative); Urine Ketones 40 mg/dL (Negative); Urine Protein 300 (3+) mg/dL (Neg-Trace)
[2023-07-05 21:24] LABS: Bacteria Urine Trace (None Seen); RBC Urine >20 /HPF (0-2); Squamous Epithelial Cell Urine 0-2 /HPF (0-2); UACC Culture Trigger YES; WBC Urine >50 /HPF (0-5)
[2023-07-05] MEDS: 0.9 % Sodium Chloride 1,000 ML 999 ML IV (22:37)
[2023-07-05] MEDS: cefTRIAXone sodium 1 GM in 0.9 % Sodium Chloride 50 ML IV (22:38)
[2023-07-05 22:43] VITALS: BP 162/88; PULSE 75; RESP 14; TEMP 36.7; O2SAT 94
--- NOTE | 2023-07-05 23:30 | PC.NURSE ---
400cc of clear yellow urine emptied for the urine collection bag.
[2023-07-05 23:38] VITALS: BP 149/93; PULSE 82; RESP 17; TEMP 36.8; O2SAT 94
--- NOTE | 2023-07-05 23:57 | PC.NURSE ---
100cc of clear yellow urine emptied from the urine collection bag.
== END 2023-07-05 23:59 | disposition home or self-care (01) ==
PROVIDERS: Physician Assistant Medical; Emergency Provider Internal Medicine; PCP Nurse Practitioner Family
DX: T83.511A Infection and inflammatory reaction due to indwelling urethral catheter, initial encounter (principal); N39.0 Urinary tract infection, site not specified; Y82.8 Other medical devices associated with adverse incidents; R31.0 Gross hematuria; E78.5 Hyperlipidemia, unspecified
CPT/HCPCS: 36415; 71045; 80048; 80076; 81001; 85025; 96361; 96374; 99284; J0696

== ENCOUNTER 2023-07-12 10:49 | Outpatient (AMB) | payer MEDICARE, SELFPAY ==
--- NOTE | 2023-07-12 11:05 | MHC.OFFVIS ---
Intake Intake Visit Reasons: one week voiding trial (ER F/U) Intake Note: New Patient is Present for [facility] [place] ER Follow Up/ Voiding Trial Urology Medication: None Antibiotic Allergies: None Blood Thinners: None Pharmacy: [facility] PVR: Patient currently has Luke Catheter that was placed in ER Visit Allergies alfuzosin Adverse Reaction (Severe, Uncoded 07/13/23 13:55) Fainting Medication List - Last Reconciled 07/12/23 by Rogelio Maher MD cefuroxime axetil 500 mg PO BID 10 days nitrofurantoin monohyd/m-cryst 100 mg (Macrobid) 100 mg PO BID 5 days terazosin 5 mg PO BEDTIME 30 days HPI HPI Comments History of Present Illness Details Bobby is a pleasant male. He seen for the following urologic conditions - urinary retention - lower urinary tract symptoms Here for voiding trial Past voiding trial Lower urinary tract symptoms Episode of urinary retention June 2023 Required cystoscopy for catheter placement Mild prostatic regrowth Continue tamsulosin May benefit from finasteride 6 week follow-up PVR If stable six-month follow-up [facility] Medical History Transient global amnesia History of depression White coat 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 hypertension Cataracts, both eyes High cholesterol Enlarged prostate Surgical History H/O transurethral resection of prostate Hx of tonsillectomy Family History Mother Glaucoma Cataract Social History Housing: House Alcohol intake: current Alcohol intake frequency: a few times a week Alcohol type: hard liquor Patient Tobacco Use Status: Never used Tobacco e-Cigarette/Vaping Use: Never Used service: Yes Current occupational status: retired Cognitive needs: No Hearing needs: No Vision needs: Yes Review of Systems Const Denies chills and Denies fever(s) Card Reports no additional complaints and Denies syncope Resp Denies cough GI Denies abdominal pain and Denies heartburn Reports as per HPI and Denies change in libido Neuro Denies syncope Psych Denies change in libido Endo Denies change in libido Physical Exam Const General: cooperative, healthy appearing, comfortable and no acute distress Orientation/consciousness: patient oriented x3 HEENT Face and sinus: Yes normal facial exam Mouth: moist mucous membranes Neck Neck: Yes normal visual inspection, Yes full ROM and Yes trachea midline Chest Chest palpation & inspection: normal inspection of the chest Resp Effort & Inspection: normal respiratory effort, able to speak in complete sentences and no respiratory distress GI Inspection: Yes normal to inspection Back/Spine/Pelvis Cervical Spine: normal cervical lordosis Thoracic/Lumbar Spine: thoracic and lumbar spine normal to inspection Skin General skin exam: no rashes or lesions noted Neuro General: patient oriented x3, gait normal, tone normal and moves all extremities Extrem General: Yes normal to inspection and Yes capillary refill normal Office Procedures Bladder/Catheter Procedure Details: pt presents to office for voiding trial. 120 mls sterile water instilled into bladder. 20 fr catether with 30 ml balloon removed. pt tolerated removal well. urinal given. MAs to bladder scan. [id number] of Bladder Procedure code (CPT) selection complete Post Void Residual Post Residual Void Post Void Residual (PVR): 106 [id number]-[id number] Void Residual by ultrasound Assessment & Plan Assessment & Plan (1) Bladder outlet obstruction: Code(s): N32.0 - Bladder-neck obstruction (2) UTI (urinary tract infection) due to urinary indwelling catheter: Code(s): T83.511A - Infection and inflammatory reaction due to indwelling urethral catheter, initial encounter; N39.0 - Urinary tract infection, site not specified Plan Six week follow-up PVR with nursing Orders: Orders AMB Bladder/Catheter Procedure 07/12/23 N39.0 - Urinary tract infection, site not specified, T83.511A - Infection and inflammatory reaction due to indwelling urethral catheter, initial encounter AMB Post Void Residual by ultrasound 07/12/23 N39.0 - Urinary tract infection, site not specified, T83.511A - Infection and inflammatory reaction due to indwelling urethral catheter, initial encounter Medications: New terazosin 5 mg PO BEDTIME 30 days 30 caps 1RF N39.0 - Urinary tract infection, site not specified, N40.1 - Benign prostatic hyperplasia with lower urinary tract symptoms, R35.0 - Frequency of micturition, T83.511A - Infection and inflammatory reaction due to indwelling urethral catheter, initial encounter finasteride 5 mg PO DAILY 90 tabs 1RF 90 days N13.8 - Other obstructive and reflux uropathy, N32.0 - Bladder-neck obstruction, N40.1 - Benign prostatic hyperplasia with lower urinary tract symptoms, R33.9 - Retention of urine, unspecified Patient Instructions: Imaging studies, laboratory and physical exam results were discussed and reviewed in detail. No major barriers to patient understanding were identified. An opportunity to ask questions regarding the treatment plan was provided. All questions were answered. The patient expressed understanding and agreement with the above treatment plan. The patient is aware they should contact our office by phone for worsening of their current condition or the appearance of new urologic symptoms. Compliance is encouraged with any medications and followup testing that is ordered. It is a privilege to participate in the urologic care of your patient. If you have any questions or concerns regarding treatment for the above conditions, or other urologic issues, please do not hesitate to contact me. The office telephone contact is [phone]. This note is constructed using voice recognition software. While every effort has been made to ensure accuracy field contact person errors may have been included. Yours sincerely, Dr Rogelio Maher MD, [facility] - Urology Providers of Expert, Compassionate Care for the Genitourinary System Coding Level of Care Code Est Pt Level 4 (58455) Diagnoses Bladder outlet obstruction N32.0 UTI (urinary tract infection) due to urinary indwelling catheter T83.511A; N39.0 CPT Codes Bladder/Catheter Procedure - CPT: 87617-Zvzwaihzyb of Bladder ([id number]) Post Residual Void - PVR CPT Code: 63743-Saqq Void Residual by ultrasound ([id number])
== END 2023-07-12 12:06 | disposition home or self-care (01) ==
PROVIDERS: Visit Provider Urology
DX: N32.0 Bladder-neck obstruction (principal); T83.511A Infection and inflammatory reaction due to indwelling urethral catheter, initial encounter
CPT/HCPCS: 51700; 99214

== ENCOUNTER → 2023-07-12 10:49 | Outpatient (BNVA) | payer MEDICARE, SELFPAY | PROVIDERS: Visit Provider Urology | DX: N32.0 Bladder-neck obstruction (principal); T83.511A Infection and inflammatory reaction due to indwelling urethral catheter, initial encounter; N39.0 Urinary tract infection, site not specified | CPT/HCPCS: 51700; 51798; 99212 ==

== ENCOUNTER 2023-07-28 10:18 | Outpatient (AMB) | payer MEDICARE, SELFPAY ==
[2023-07-28 10:39] VITALS: BP 182/100; PULSE 98; RESP 16; O2SAT 99; BMI 27.2
--- NOTE | 2023-07-28 10:39 | A.OFFPC_ITS ---
Vital Signs 07/28/23 10:39 07/28/23 11:02 Height 5 ft 8 in Weight 179 lb BMI 27.2 BP 182/100 H 160/96 H Blood Pressure Location Lt brachial Lt brachial Position Sitting Sitting Respiration 16 Pulse 98 Pulse Source Pulse Oximeter Pulse Oximetry (%) 99 Oxygen Delivery Method Room Air Intake Visit Reasons: 3 month f/u Business Services Administrator Required: No Accompanied by: Self / Same As Patient Allergies alfuzosin Adverse Reaction (Severe, Uncoded 07/28/23 10:49) Fainting Medication List - Last Reconciled 07/28/23 by FELIX Guzman tamsulosin 0.4 mg PO DAILY 30 days Tobacco use date assessed: 04/21/23 Fall risk assessment: No Falls in past year Last assessed Fall Risk: 07/28/23 Dental Screening Dental Screen Date: 07/28/23 Did you have a dental visit in the last 12 months?: No Did you have a dental problem in the last 6 months where you did not have access to dental care?: No Was dental information given to patient?: Patient has dentist HPI HPI Comments History of Present Illness Details 73-year-old male past medical history si gnificant for depression, high cholesterol, White coat syndrome, enlarged prostate s/p TURP. Review of the notes patient was seen in the emergency room multiple times in June for BPH status post cystoscopy with hematuria and passing clots x2 days bladder was irrigated patient was found to be positive for UTI and was treated with p.o. Ceftin and catheter was inserted by Urology. Patient returned on the for decreased urine bladder scan revealed only 18 mL in the bladder. Patient continues to follow-up with Dr. Maher outpatient underwent voiding trial last week that he passed and Luke catheter was removed. Patient denies any complic ations voiding. Patient's blood pressure elevated in office today 180s/100. Patient reports that he has really bad white coat syndrome and he stresses about coming to the doctor states that advance and worries having his blood pressure checked his nose elevated when he comes in. Patient states takes checks his blood pressure at home periodically and runs 140/79, if not lower. Discussed starting patient on low-dose blood pressure medication. However patient declines at this time states that he knows it is due to longstanding history of white coat syndrome and states he was recently started on terazosin by Dr. Maher and he took 1 dose and had a syncopal episode she was told was likely related to hypotension related to the medication we would like to refrain from taking blood pressure medication at this time. Patient's blood pressure repeated decreased to 176/99. Patient states the longer he sits here will gradually come down the less nervous he gets, blood pressure checked at end of this appointment 160/96. Patient reminded to get previously ordered fasting blood work completed. 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 Cataracts, both eyes High cholesterol Enlarged prostate Surgical History H/O transurethral resection of prostate Hx of tonsillectomy Family History Mother Glaucoma Cataract Social History Housing: House Alcohol intake: current Alcohol intake frequency: a few times a week Alcohol type: hard liquor Patient Tobacco Use Status: Never used Tobacco e-Cigarette/Vaping Use: Never Used service: Yes Current occupational status: retired Cognitive needs: No Hearing needs: No Vision needs: Yes Questionnaire Thrive Questionnaire Date Thrive assessed: 04/21/23 OSMANY-7 AMB Questionnaire OSMANY-7 Date OSMANY - 7 assessed: 04/21/23 Source: Developed by Drs. Dillon Lion, Deandra Peralta, Servando Zamora and colleagues, with an educational jose francisco from [employer]. Review of Systems Const Denies chills, Denies fatigue, Denies fever(s) and Denies poor appetite Eyes Denies no additional complaints ENT Reports Normal hearing present Card Denies chest pain, Denies syncope, Denies rapid heart rate and Denies dyspnea Resp Denies cough and Denies dyspnea GI Denies change in stool character, Denies constipation, Denies diarrhea, Denies nausea and Denies vomiting Denies dysuria, Denies urinary frequency and Denies urinary urgency Neuro Reports Normal hearing present, Denies confusion and Denies syncope Psych Denies confusion Endo Denies fatigue Physical exam (Primary Care) Vital Signs: Last Vital Signs Pulse 98 07/28/23 10:39 Resp 16 07/28/23 10:39 BP 160/96 H 07/28/23 11:02 Pulse Ox 99 07/28/23 10:39 Oxygen Delivery Method Room Air 07/28/23 10:39 BMI result Body Mass Index 27.2 Tobacco/Smoking Status: Tobacco use Status Tobacco use date assessed 04/21/23 07/28/23 10:39 Patient Tobacco Use Status Never used Tobacco 07/28/23 10:39 e-Cigarette/Vaping Use Never Used 07/28/23 10:39 Thrive Assessment: Date of Thrive Assessment Date Thrive assessed 04/21/23 07/28/23 10:39 Const General: No confusion Orientation/consciousness: No confusion HENMT Head: Yes normocephalic and Yes atraumatic Eyes Conjunctivae: conjunctivae normal Chest Chest palpation & inspection: normal inspection of the chest Resp Effort & Inspection: normal respiratory effort Auscultation: clear to auscultation bilaterally, no crackles, no rhonchi and no wheezes Cardio Rate: regular rate Rhythm: regular rhythm Heart sounds: S1 normal heart sound present and S2 normal heart sound present GI Inspection: Yes normal to inspection Neuro General: No confusion Cranial nerves: Yes Normal hearing present Extrem General: No edema Assessment and Plan Assessment & Plan (1) Hypercholesteremia: Code(s): E78.00 - Pure hypercholesterolemia, unspecified Plan: Previously LDL 180s Avoid fried foods, chicken skin, eggs, butter,margarine, pastries and?? red meat. Discussed starting cholesterol medication with patient patient reluctant to start statin medication at this time. (2) Elevated blood pressure reading in office with white coat syndrome, without diagnosis of hypertension: Code(s): R03.0 - Elevated blood-pressure reading, without diagnosis of hypertension Plan: Patient advised to check blood pressure periodically home after sitting down for 3-5 minutes and keep a log. Blood pressure goal less than 140/90 Encouraged low-salt diet exercise. (3) Bladder outlet obstruction: Code(s): N32.0 - Bladder-neck obstruction Plan: Continue to follow with Urology. Continue on Flomax. Plan Follow up in 3 months Orders: Orders Comprehensive [place]. Panel Fast Today E78.00 - Pure hypercholesterolemia, unspecified Coding Level of Care Code Est Pt Level 3 (83801) Diagnoses Hypercholesteremia E78.00 Elevated blood pressure reading in office with white coat syndrome, without diagnosis of hypertension R03.0 Bladder outlet obstruction N32.0
[2023-07-28 11:02] VITALS: BP 160/96
== END 2023-07-28 11:07 | disposition home or self-care (01) ==
PROVIDERS: PCP Nurse Practitioner Family; Visit Provider Nurse Practitioner Family
DX: E78.00 Pure hypercholesterolemia, unspecified (principal); R03.0 Elevated blood-pressure reading, without diagnosis of hypertension; N32.0 Bladder-neck obstruction
CPT/HCPCS: 99213

== ENCOUNTER → 2023-08-24 10:55 | Outpatient (BNVA) | payer MEDICARE, SELFPAY | PROVIDERS: PCP Nurse Practitioner Family; Visit Provider Urology | DX: N32.0 Bladder-neck obstruction (principal); N40.1 Benign prostatic hyperplasia with lower urinary tract symptoms; N13.8 Other obstructive and reflux uropathy; R33.9 Retention of urine, unspecified | CPT/HCPCS: 51798 ==

== ENCOUNTER 2023-09-14 09:10 | Outpatient (REF) | payer MEDICARE, SELFPAY ==
[2023-09-14 12:20] LABS: Alanine Aminotransferase 36 U/L (0-40); Albumin Level 4.3 g/dL (3.5-5.0); Alkaline Phosphatase 101 U/L (39-117); Anion Gap 10 (12-20); Aspartate Amino Transferase 50 U/L (5-37); Bilirubin Total 0.6 mg/dL (0.0-1.0); Blood Urea Nitrogen 18 mg/dL (9-16); Calcium 9.9 mg/dL (8.4-10.2); Carbon Dioxide 28 mmol/L (22-29); Chloride 106 mmol/L (96-108); Cholesterol 257 mg/dL (<200); Estimated Glomerular Filt Rate > 60; Glucose Fasting 95 mg/dL (60-99); HDL Cholesterol 60 mg/dL (>40); LDL Cholesterol Calculated 171 mg/dL (<100); Potassium 4.7 mmol/L (3.3-5.1); Sodium 139 mmol/L (135-145); Total Protein 7.9 g/dL (6.5-8.0); Triglycerides 134 mg/dL (<150)
== END 2023-09-14 09:11 | disposition home or self-care (01) ==
LOC: HO.HMGCLDS 09:10
PROVIDERS: PCP Nurse Practitioner Family; Visit Provider Nurse Practitioner Family
DX: E78.00 Pure hypercholesterolemia, unspecified (principal)
CPT/HCPCS: 36415; 80053; 80061

== ENCOUNTER 2023-10-25 07:54 | Outpatient (AMB) | payer MEDICARE, SELFPAY ==
[2023-10-25 07:55] VITALS: BP 158/92; PULSE 92; O2SAT 98; BMI 27.2
--- NOTE | 2023-10-25 07:55 | MHC.PC.OV ---
Vital Signs 10/25/23 07:55 Height 5 ft 8 in Weight 179 lb BMI 27.2 BP 158/92 H Blood Pressure Location Lt brachial Position Sitting Pulse 92 Pulse Source Pulse Oximeter Pulse Oximetry (%) 98 Oxygen Delivery Method Room Air Intake Visit Reasons: hypercholestermia, Elevated B/p Allergies terazosin Adverse Reaction (Severe, Uncoded 10/25/23 13:33) Hypotension Medication List - Last Reconciled 10/25/23 by Timbo Oreilly MD finasteride 5 mg PO DAILY 90 days tamsulosin 0.4 mg PO BID 90 days Tobacco use date assessed: 10/25/23 Fall risk assessment: No Falls in past year Last assessed Fall Risk: 10/25/23 Dental Screening Dental Screen Date: 10/25/23 Did you have a dental visit in the last 12 months?: No Did you have a dental problem in the last 6 months where you did not have access to dental care?: No Was dental information given to patient?: No HPI hypercholestermia, Elevated B/p HPI Details 73-year-old male presents to the office to discuss his chronic medical conditions. I will be his new primary care provider as his previous provider has left the practice. Patient gives history of borderline hypertension. He reports that his blood pressures are always elevated when he comes to a doctor's office due to inherent anxiety. He is reluctant to take medications for the same. Recently had cataract surgery done. He also has a chronic postnasal drip. Patient reports that every time he eats food he has a coughing fit. Able to swallow and drink. No weight loss. FORMERLY [facility], [facility] Medical History Transient global amnesia History of depression White coat 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 hypertension Cataracts, both eyes High cholesterol Enlarged prostate Surgical History H/O transurethral resection of prostate Hx of tonsillectomy Family History Mother Glaucoma Cataract Social History Housing: House Alcohol intake: current Alcohol intake frequency: a few times a week Alcohol type: hard liquor Patient Tobacco Use Status: Never used Tobacco e-Cigarette/Vaping Use: Never Used Second Hand Smoke Exposure: No service: Yes Current occupational status: retired Cognitive needs: No Hearing needs: No Vision needs: Yes Questionnaire PHQ-9 Over the last 2 weeks, how often have you been bothered by any of the following problems? 1. Little interest or pleasure in doing things: several days 2. Feeling down, depressed, or hopeless: several days 3. Trouble falling or staying asleep, or sleeping too much: more than half the days 4. Feeling tired or having little energy: not at all 5. Poor appetite or overeating: not at all 6. Feeling bad about yourself - or that you are a failure or have let yourself or your family down: several days 7. Trouble concentrating on things, such as reading the newspaper or watching television: nearly every day 8. Moving or speaking so slowly that other people could have noticed. Or the opposite - being so fidgety or restless that you have been moving around a lot more than usual: several days 9. Thoughts that you would be better off or of hurting yourself in some way: not at all Total score: 9 Depression Screening Interpretation: Positive Depression Screening Done: Yes 61062 - PHQ-9 Billing: Yes Source: Developed by Drs. Dillon Lion, Deandra Peralta, Servando Zamora and colleagues, with an educational jose francisco from [employer]. Thrive Questionnaire Date Thrive assessed: 10/25/23 I am a: Patient What is your living situation today?: I have a steady place to live Within the past 12 months, did the food you bought not last and you didn't have the money to get more?: Never true Within the past 12 months, did you worry whether your food would run out before you got money to buy more?: Never true Do you have trouble paying for medicines?: No Do you have trouble getting transportation to medical appointments?: No Do you have trouble paying your heating and electricity bill?: No Do you have trouble taking care of your child, family member or friend?: No Do you have trouble with day-to-day activities such as bathing, preparing meals, shopping, managing finances, etc.?: No Are you currently unemployed and looking for a job?: No Are you interested in more education?: No Currently or been in a relationship where the following occur: no concerns reported AUDIT C Alcohol Use Questionnaire (AUDIT-C) 1. How often do you have a drink containing alcohol?: 2-4 times a month 2. How many drinks containing alcohol do you have on a typical day when you are drinking?: 1 or 2 3. How often do you have six or more drinks on one occasion?: Never Total Score: 2 OSMANY-7 AMB Questionnaire OSMANY-7 Date OSMANY - 7 assessed: 10/25/23 Feeling nervous, anxious, or on edge: 0 = Not at all Not being able to stop or control worryin = Not at all Worrying too much about different things: 0 = Not at all Trouble relaxin = Not at all Being so restless that it is hard to sit still: 0 = Not at all Becoming easily annoyed or irritable: 0 = Not at all Feeling afraid as if something awful might happen: 0 = Not at all Total OSMANY-7 score (0-4 normal; 5-9 mild; 10-14 moderate; 15-21 severe): 0 Source: Developed by Drs. Dillon Lion, Deandra Peralta, Servando Zamora and colleagues, with an educational jose francisco from [employer]. Physical exam (Primary Care) Vital Signs: Last Vital Signs Pulse 92 10/25/23 07:55 BP 158/92 H 10/25/23 07:55 Pulse Ox 98 10/25/23 07:55 Oxygen Delivery Method Room Air 10/25/23 07:55 BMI result Body Mass Index 27.2 Tobacco/Smoking Status: Tobacco use Status Tobacco use date assessed 10/25/23 10/25/23 08:04 Patient Tobacco Use Status Never used Tobacco 10/25/23 08:04 e-Cigarette/Vaping Use Never Used 10/25/23 08:04 PHQ-9: PHQ-9 Score PHQ-9: Total score 9 10/25/23 08:04 Depression Screening Interpretation: Positive Thrive Assessment: Date of Thrive Assessment Date Thrive assessed 10/25/23 10/25/23 08:04 Currently or been in a relationship where the following occur: no concerns reported Const General: cooperative and healthy appearing Nutritional Appearance: well nourished Orientation/consciousness: patient oriented x3 Limitations: no limitations HENMT Head: Yes normal to inspection Eyes General: appearance normal, both eyes and all related structures Neck Neck: Yes normal visual inspection Chest Chest palpation & inspection: normal palpation of entire chest wall Resp Effort & Inspection: normal respiratory effort Neuro General: patient oriented x3 Assessment and Plan Assessment & Plan (1) Elevated blood pressure reading in office with white coat syndrome, without diagnosis of hypertension: Code(s): R03.0 - Elevated blood-pressure reading, without diagnosis of hypertension Plan: In my opinion patient does have borderline baseline hypertension. I reviewed his blood pressures from home and he has readings greater than 140 systolic. He is very reluctant to take medications. Explained to him the risks of uncontrolled hypertension that includes stroke. (2) Cough: Code(s): R05.9 - Cough, unspecified Plan: Cough symptoms after eating could suggest a swallowing disorder. A barium swallow was suggested. This would be followed by a swallowing evaluation. Patient declined any testing at the moment. He understands the consequences of undiagnosed cough. Coding Level of Care Code Est Pt Level 4 (01292) Diagnoses Elevated blood pressure reading in office with white coat syndrome, without diagnosis of hypertension R03.0 Cough R05.9
== END 2023-10-25 08:56 | disposition home or self-care (01) ==
PROVIDERS: PCP Internal Medicine; Visit Provider Internal Medicine
DX: R03.0 Elevated blood-pressure reading, without diagnosis of hypertension (principal); R05.9 Cough, unspecified
CPT/HCPCS: 99214

== ENCOUNTER 2023-11-23 11:18 | Outpatient (AMB) | payer MEDICARE, SELFPAY ==
--- NOTE | 2023-11-23 11:23 | MHC.OFFVIS ---
Intake Intake Visit Reasons: 3m/PVR Intake Note: Patient presents today for a follow-up Meds- Finasteride, Tamsulosin, Allergies to Antibiotic- No Known Allergies Blood Thinner- None Post Void Residual: 0 Patient Symptoms: Patient stated he is not longer taking Terazosin because the medication lowered his blood pressure and had to call EMS service to take care of him. Flatlock Sewing Machine Operator Required: No Accompanied by: Self / Same As Patient Allergies terazosin Adverse Reaction (Severe, Uncoded 11/23/23 11:35) Hypotension Medication List - Last Reconciled 11/23/23 by Rogelio Maher MD finasteride 5 mg PO DAILY 90 days tamsulosin 0.4 mg PO BID 90 days HPI HPI Comments History of Present Illness Details Bobby is a pleasant male. He seen for the following urologic conditions - urinary retention - lower urinary tract symptoms Six-month follow-up PVR low Continue combination therapy Twelve month follow-up Lower urinary tract symptoms Episode of urinary retention June 2023 Required cystoscopy for catheter placement Mild prostatic regrowth Continue tamsulosin with finasteride PFSH Medical History Transient global amnesia History of depression White coat 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 hypertension Cataracts, both eyes High cholesterol Enlarged prostate Surgical History H/O transurethral resection of prostate Hx of tonsillectomy Family History Mother Glaucoma Cataract Social History Housing: House Alcohol intake: current Alcohol intake frequency: a few times a week Alcohol type: hard liquor Patient Tobacco Use Status: Never used Tobacco e-Cigarette/Vaping Use: Never Used Second Hand Smoke Exposure: No service: Yes Current occupational status: retired Cognitive needs: No Hearing needs: No Vision needs: Yes Review of Systems Const Denies chills and Denies fever(s) Card Reports no additional complaints and Denies syncope Resp Denies cough GI Denies abdominal pain and Denies heartburn Reports as per HPI and Denies change in libido Neuro Denies syncope Psych Denies change in libido Endo Denies change in libido Physical Exam Const General: cooperative, healthy appearing, comfortable and no acute distress Orientation/consciousness: patient oriented x3 HEENT Face and sinus: Yes normal facial exam Mouth: moist mucous membranes Neck Neck: Yes normal visual inspection, Yes full ROM and Yes trachea midline Chest Chest palpation & inspection: normal inspection of the chest Resp Effort & Inspection: normal respiratory effort, able to speak in complete sentences and no respiratory distress GI Inspection: Yes normal to inspection Back/Spine/Pelvis Cervical Spine: normal cervical lordosis Thoracic/Lumbar Spine: thoracic and lumbar spine normal to inspection Skin General skin exam: no rashes or lesions noted Neuro General: patient oriented x3, gait normal, tone normal and moves all extremities Extrem General: Yes normal to inspection and Yes capillary refill normal Office Procedures Post Void Residual Post Residual Void Post Void Residual (PVR): 0 [id number] Void Residual by ultrasound Assessment & Plan Assessment & Plan (1) Bladder outlet obstruction: Code(s): N32.0 - Bladder-neck obstruction Plan Twelve month follow-up lab work, PVR Orders: Orders AMB Post Void Residual by ultrasound Today R33.9 - Retention of urine, unspecified Medications: Refilled finasteride 5 mg PO DAILY 90 tabs 3RF 90 days N13.8 - Other obstructive and reflux uropathy, N32.0 - Bladder-neck obstruction, N40.1 - Benign prostatic hyperplasia with lower urinary tract symptoms, R33.9 - Retention of urine, unspecified tamsulosin 0.4 mg PO BID 180 caps 3RF 90 days Patient Instructions: Imaging studies, laboratory and physical exam results were discussed and reviewed in detail. No major barriers to patient understanding were identified. An opportunity to ask questions regarding the treatment plan was provided. All questions were answered. The patient expressed understanding and agreement with the above treatment plan. The patient is aware they should contact our office by phone for worsening of their current condition or the appearance of new urologic symptoms. Compliance is encouraged with any medications and followup testing that is ordered. It is a privilege to participate in the urologic care of your patient. If you have any questions or concerns regarding treatment for the above conditions, or other urologic issues, please do not hesitate to contact me. The office telephone contact is [phone]. This note is constructed using voice recognition software. While every effort has been made to ensure accuracy real estate officer errors may have been included. Yours sincerely, Dr Rogelio Maher MD, [facility] - Urology Providers of Expert, Compassionate Care for the Genitourinary System Coding Level of Care Code Est Pt Level 3 (27808) Diagnoses Bladder outlet obstruction N32.0 CPT Codes Post Residual Void - PVR CPT Code: 92430-Avwh Void Residual by ultrasound ([id number])
== END 2023-11-23 11:44 | disposition home or self-care (01) ==
PROVIDERS: PCP Nurse Practitioner Family; Visit Provider Urology
DX: N32.0 Bladder-neck obstruction (principal)
CPT/HCPCS: 99213

== ENCOUNTER → 2023-11-23 11:18 | Outpatient (BNVA) | payer MEDICARE, SELFPAY | PROVIDERS: PCP Nurse Practitioner Family; Visit Provider Urology | DX: N32.0 Bladder-neck obstruction (principal) | CPT/HCPCS: 51798; 99212 ==

== ENCOUNTER 2024-01-25 09:09 | Outpatient (REF) | payer MEDICARE, SELFPAY ==
[2024-01-25 10:53] LABS: Alanine Aminotransferase 35 U/L (0-40); Albumin Level 4.3 g/dL (3.5-5.0); Alkaline Phosphatase 99 U/L (39-117); Anion Gap 14 (12-20); Aspartate Amino Transferase 44 U/L (5-37); Bilirubin Total 0.7 mg/dL (0.0-1.0); Blood Urea Nitrogen 19 mg/dL (9-16); Calcium 9.5 mg/dL (8.4-10.2); Carbon Dioxide 28 mmol/L (22-29); Chloride 104 mmol/L (96-108); Cholesterol 248 mg/dL (<200); Estimated Glomerular Filt Rate > 60; Glucose Fasting 94 mg/dL (60-99); HDL Cholesterol 59 mg/dL (>40); LDL Cholesterol Calculated 161 mg/dL (<100); Potassium 3.8 mmol/L (3.3-5.1); Sodium 142 mmol/L (135-145); Total Protein 7.4 g/dL (6.5-8.0); Triglycerides 140 mg/dL (<150)
[2024-01-25 11:33] LABS: PSA,Total (Free>4and<10) 2.52 ng/mL (0.00-4.00)
== END 2024-01-25 09:10 | disposition home or self-care (01) ==
LOC: HO.HMGCLDS 09:09
PROVIDERS: Urology; PCP Internal Medicine; Referring Provider Nurse Practitioner Family; Visit Provider Internal Medicine
DX: Z12.5 Encounter for screening for malignant neoplasm of prostate (principal); N32.0 Bladder-neck obstruction; E78.00 Pure hypercholesterolemia, unspecified
CPT/HCPCS: 36415; 80053; 80061; 84153

== ENCOUNTER 2024-02-09 09:17 | Outpatient (AMB) | payer MEDICARE, SELFPAY ==
--- NOTE | 2024-02-09 09:29 | A.OFFPC_ITS ---
Vital Signs 02/09/24 09:31 Height 5 ft 8 in Weight 175 lb 6 oz BMI 26.7 BP 120/62 Blood Pressure Location Lt brachial Position Sitting Pulse 110 H Pulse Source Pulse Oximeter Pulse Oximetry (%) 98 Oxygen Delivery Method Room Air Intake Visit Reasons: L Eye Lens Implant 03/06/24 / 3 Month F/U Intake Note: Patient is here for a Pre-op for Left eye lens implant, Right eye lens scheduled with Mary Ann Alexander ([facility]) on 02/21/24, 03/06/24. Esl Teacher Required: No Corporate Sales Representative: Not Required per policy Accompanied by: Self / Same As Patient Allergies terazosin Adverse Reaction (Severe, Uncoded 02/14/24 05:43) Hypotension Medication List - Last Reconciled 02/14/24 by Timbo Oreilly MD finasteride 5 mg PO DAILY 90 days tamsulosin 0.4 mg PO BID 90 days Tobacco use date assessed: 02/09/24 Fall risk assessment: No Falls in past year Last assessed Fall Risk: 02/09/24 Dental Screening Dental Screen Date: 10/25/23 HPI L Eye Lens Implant 03/06/24 / 3 Month F/U HPI Details 74-year-old male presents to the office for a preop clearance. Patient is scheduled for intra-ocular lens implant on Feb 21 2024. Procedure is to be done under local anesthesia at an outpatient surgical center. [facility] Medical History Transient global amnesia History of depression White coat 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 hypertension Cataracts, both eyes High cholesterol Enlarged prostate Surgical History H/O transurethral resection of prostate Hx of tonsillectomy Family History Mother Glaucoma Cataract Social History Housing: House Alcohol intake: current Alcohol intake frequency: a few times a month Alcohol type: wine Patient Tobacco Use Status: Never used Tobacco e-Cigarette/Vaping Use: Never Used Second Hand Smoke Exposure: No service: Yes Current occupational status: retired Cognitive needs: No Hearing needs: No Vision needs: Yes Questionnaire Thrive Questionnaire Date Thrive assessed: 10/25/23 OSMANY-7 AMB Questionnaire OSMANY-7 Date OSMANY - 7 assessed: 10/25/23 Source: Developed by Drs. Dillon Lion, Deandra Peralta, Servando Zamora and colleagues, with an educational jose francisco from [employer]. Physical exam (Primary Care) Vital Signs: Last Vital Signs Pulse 110 H 02/09/24 09:31 BP 120/62 02/09/24 09:31 Pulse Ox 98 02/09/24 09:31 Oxygen Delivery Method Room Air 02/09/24 09:31 BMI result Body Mass Index 26.7 Tobacco/Smoking Status: Tobacco use Status Tobacco use date assessed 02/09/24 02/09/24 09:38 Patient Tobacco Use Status Never used Tobacco 02/09/24 09:38 e-Cigarette/Vaping Use Never Used 02/09/24 09:38 Thrive Assessment: Date of Thrive Assessment Date Thrive assessed 10/25/23 02/09/24 09:38 Const General: cooperative and healthy appearing Nutritional Appearance: well nourished Orientation/consciousness: patient oriented x3 Limitations: no limitations HENMT Head: Yes normal to inspection Eyes General: appearance normal, both eyes and all related structures Neck Neck: Yes normal visual inspection Chest Chest palpation & inspection: normal palpation of entire chest wall Resp Effort & Inspection: normal respiratory effort Neuro General: patient oriented x3 Results Reviewed Results Reviewed: Chemistry and EKG revd Assessment and Plan Assessment & Plan (1) Cataract extraction status, unspecified eye: Code(s): Z98.49 - Cataract extraction status, unspecified eye (2) Preoperative clearance: Code(s): Z01.818 - Encounter for other preprocedural examination Plan: Proceed to surgery under local anesthesia. Post op care as per the gas torch solderer. Coding Level of Care Code Est Pt Level 4 (98883) Diagnoses Cataract extraction status, unspecified eye Z98.49 Preoperative clearance Z01.818
[2024-02-09 09:31] VITALS: BP 120/62; PULSE 110; O2SAT 98; BMI 26.7
== END 2024-02-09 10:40 | disposition home or self-care (01) ==
PROVIDERS: PCP Internal Medicine; Visit Provider Internal Medicine
DX: Z98.49 Cataract extraction status, unspecified eye (principal); Z01.818 Encounter for other preprocedural examination
CPT/HCPCS: 99214

== ENCOUNTER 2024-11-12 10:45 | Outpatient (REF) | payer MEDICARE, SELFPAY ==
[2024-11-12 14:07] LABS: Prostate Specific Antigen 2.07 ng/mL (<0.05-4.0)
== END 2024-11-12 10:46 | disposition home or self-care (01) ==
LOC: HO.HMGCLDS 10:45
PROVIDERS: PCP Internal Medicine; Visit Provider Urology
DX: N32.0 Bladder-neck obstruction (principal); R30.0 Dysuria; Z12.5 Encounter for screening for malignant neoplasm of prostate
CPT/HCPCS: 36415; 84153

== ENCOUNTER → 2024-11-23 11:12 | Outpatient (AMB) | payer MEDICARE, SELFPAY | END | disposition home or self-care (01) | PROVIDERS: PCP Nurse Practitioner Family; Visit Provider Urology | CPT/HCPCS: 99214 ==

== ENCOUNTER → 2024-11-23 11:12 | Outpatient (BNVA) | payer MEDICARE, SELFPAY | PROVIDERS: PCP Nurse Practitioner Family; Visit Provider Urology | DX: R33.9 Retention of urine, unspecified (principal); N32.0 Bladder-neck obstruction; R35.1 Nocturia | CPT/HCPCS: 51798; 81003; 99212 ==

== ENCOUNTER 2025-08-22 07:36 | Outpatient (AMB) | payer MEDICARE, SELFPAY ==
--- OUTSIDE RECORDS SUMMARY | 2025-08-22 07:39 | XMS_ITS | Patient Health Record ---
Author Organization [facility] Address [address] [place] [address] Care Team Providers Care Finished Goods Stock Clerk Name Role Phone PIPPA HURTADO Primary Care Provider Lalito Broussard Jr Unavailable [phone] Reason For Referral No Information Medications Medication SIG (Take, Route, Frequency, Duration) Notes Start Date End Date Status Colyte with Flavor Packs 240 GM As directed Orally Over the specified time.; Duration: 1 day(s) 11/11/2016 Active Problems Problem Type SNOMED Code ICD Code Onset Dates Problem Status W/U Status Risk Notes Problem Colon cancer screening (115013864) Colon cancer screening (V76.51) Active confirmed Problem Screening for malignant neoplasm of colon (612765059) Special screening for malignant neoplasms, colon (Z12.11) Active confirmed Plan Of Treatment Future Test Test Name Order Date COLONOSCOPY 11/11/2016 Insurance Providers Payer Name Payer Address Payer Phone Subscriber Number Group Number Insured Name Patient Relationship to Insured Coverage Start Date Coverage End Date [facility] [address] [place] [phone] [id number] RASHAD DELEON Self - patient is the insured Medical (General) History Medical History History ICD Code colonoscopy 02-27-2010 colon polyp hypertension benign prostatic hypertrophy transient global amnesia requiing a hosp ital evaluation Surgical History Surgery Date(Month/Year)
[2025-08-22 07:45] VITALS: BP 172/98; PULSE 104; O2SAT 97; BMI 27.5
--- NOTE | 2025-08-22 07:45 | MHC.PC.OV ---
Vital Signs 08/22/25 07:45 Height 5 ft 8 in Weight 181 lb BMI 27.5 BP 172/98 H Blood Pressure Location Lt brachial Position Sitting Pulse 104 H Pulse Source Pulse Oximeter Pulse Oximetry (%) 97 Oxygen Delivery Method Room Air Intake Visit Reasons: PE - see comments Allergies terazosin Adverse Reaction (Severe, Uncoded 08/22/25 07:46) Hypotension Tobacco use date assessed: 08/22/25 Fall risk assessment: No Falls in past year Last assessed Fall Risk: 08/22/25 Dental Screening Dental Screen Date: 08/22/25 Did you have a dental visit in the last 12 months?: No Did you have a dental problem in the last 6 months where you did not have access to dental care?: No Was dental information given to patient?: Patient has dentist [facility] Medical History (Updated 11/23/24 @ 11:43 by Rogelio Maher MD) Transient global amnesia History of depression White coat 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 hypertension Cataracts, both eyes High cholesterol Enlarged prostate Surgical History (Updated 08/21/25 @ 07:04 by Mattie Moore) History of colonoscopy (~01/12/17) H/O transurethral resection of prostate Hx of tonsillectomy Family History Mother Glaucoma Cataract Social History Housing: House Alcohol intake: current Alcohol intake frequency: a few times a month Alcohol type: wine Patient Tobacco Use Status: Never used Tobacco Tobacco use type: Cigarette e-Cigarette/Vaping Use: Never Used Second Hand Smoke Exposure: No service: Yes Current occupational status: retired Cognitive needs: No Hearing needs: No Vision needs: Yes Questionnaire PHQ-9 Over the last 2 weeks, how often have you been bothered by any of the following problems? 1. Little interest or pleasure in doing things: not at all 2. Feeling down, depressed, or hopeless: not at all 3. Trouble falling or staying asleep, or sleeping too much: not at all 4. Feeling tired or having little energy: several days 5. Poor appetite or overeating: not at all 6. Feeling bad about yourself - or that you are a failure or have let yourself or your family down: not at all 7. Trouble concentrating on things, such as reading the newspaper or watching television: more than half the days 8. Moving or speaking so slowly that other people could have noticed. Or the opposite - being so fidgety or restless that you have been moving around a lot more than usual: not at all 9. Thoughts that you would be better off or of hurting yourself in some way: not at all Total score: 3 Depression Screening Interpretation: Positive Depression Screening Done: Yes Source: Developed by Drs. Dillon Lion, Deandra Peralta, Servando Zamora and colleagues, with an educational jose francisco from [employer]. Thrive Questionnaire Date Thrive assessed: 08/22/25 I am a: Patient What is your living situation today?: I have a steady place to live Within the past 12 months, did the food you bought not last and you didn't have the money to get more?: Never true Within the past 12 months, did you worry whether your food would run out before you got money to buy more?: Never true Do you have trouble paying for medicines?: No Do you have trouble getting transportation to medical appointments?: No Do you have trouble paying your heating and electricity bill?: No Do you have trouble taking care of your child, family member or friend?: No Do you have trouble with day-to-day activities such as bathing, preparing meals, shopping, managing finances, etc.?: No Are you currently unemployed and looking for a job?: No Are you interested in more education?: No Please select the resources that you would like help with: None Currently or been in a relationship where the following occur: No concerns reported THRIVE Score: 0 AUDIT C Alcohol Use Questionnaire (AUDIT-C) 1. How often do you have a drink containing alcohol?: Monthly or less 2. How many drinks containing alcohol do you have on a typical day when you are drinking?: 1 or 2 3. How often do you have six or more drinks on one occasion?: Never Total Score: 1 OSMANY-7 AMB Questionnaire OSMANY-7 Date OSMANY - 7 assessed: 08/22/25 Feeling nervous, anxious, or on edge: 0 = Not at all Not being able to stop or control worryin = Not at all Worrying too much about different things: 0 = Not at all Trouble relaxin = Not at all Being so restless that it is hard to sit still: 0 = Not at all Becoming easily annoyed or irritable: 0 = Not at all Feeling afraid as if something awful might happen: 0 = Not at all Total OSMANY-7 score (0-4 normal; 5-9 mild; 10-14 moderate; 15-21 severe): 0 Source: Developed by Drs. Dillon Lion, Deandra Peralta, Servando Zamora and colleagues, with an educational jose francisco from [employer]. OSMANY-7 Assessment Billing OSMANY-7 Assessment Tool: OSMANY-7 Assessment 32982 Physical exam (Primary Care) Vital Signs: Last Vital Signs Pulse 104 H 08/22/25 07:45 BP 172/98 H 08/22/25 07:45 Pulse Ox 97 08/22/25 07:45 Oxygen Delivery Method Room Air 08/22/25 07:45 BMI result Body Mass Index 27.5 Tobacco/Smoking Status: Tobacco use Status Tobacco use date assessed 08/22/25 08/22/25 07:54 Patient Tobacco Use Status Never used Tobacco 08/22/25 07:54 Tobacco use type Cigarette 08/22/25 07:54 e-Cigarette/Vaping Use Never Used 08/22/25 07:54 PHQ-9: PHQ-9 Score PHQ-9: Total score 3 08/22/25 07:54 Depression Screening Interpretation: Positive Thrive Assessment: Date of Thrive Assessment Date Thrive assessed 08/22/25 08/22/25 07:54 Currently or been in a relationship where the following occur: No concerns reported Coding Level of Care Code Est Pt Prev Care >65y(04357) Diagnoses Hypercholesteremia E78.00 Annual physical exam Z00.00 Additional Codes OSMANY-7 Assessment Billing - OSMANY-7 Assessment Tool: OSMANY-7 Assessment 47751 ([id number]) Assessment & Plan Assessment & Plan (1) Hypercholesteremia: Code(s): E78.00 - Pure hypercholesterolemia, unspecified Category: Medical Plan: History of Present Illness - The patient is a 75-year-old male presenting for an annual physical. - Benign Prostatic Hyperplasia: The patient has a 10-year history of prostate issues, previously complicated by significant bleeding, blood clots, and urinary retention requiring emergency room visits. - His symptoms have resolved since starting treatment with finasteride and tamsulosin. - He is followed by a urologist, Dr. Maher, on a yearly basis. - Colon Cancer Screening: The patient is overdue for colon cancer screening. - His last colonoscopy revealed polyps, with a recommendation for repeat screening in 10 years, and he believes more than 10 years have passed. - He has a family history of colon cancer, as his father had colon cancer that metastasized to the liver. - Vision: He is post-cataract surgery and reports good distance vision. - He notes experiencing intermittent diplopia in the mornings, when tired, or after prolonged screen time, which self-resolves. - Hearing: He reports poor hearing in his right ear and must use his left ear for telephone conversations. - General: The patient reports occasional lightheadedness if he does not maintain adequate hydration. - Immunizations: The patient has never received an influenza vaccine and declines it, stating a preference for a natural approach. Social History - Marital Status: Lives with his . - Functional Status: He is able to drive. Review of Systems - Constitutional: Reports occasional lightheadedness if he does not stay hydrated. - Eyes: Reports intermittent diplopia in the mornings, when tired, or with excessive screen time. - He reports good distance vision post-cataract surgery. - Ears: Reports poor hearing in the right ear. - Genitourinary: Reports improvement in prostate symptoms, including resolution of bleeding, blood clots, and urinary retention, since starting medication. Physical Exam General: Cooperative and healthy appearing Nutritional Appearance: Well nourished Orientation/consciousness: Patient oriented x3 Limitations: No limitations Head: Normal to inspection General: Appearance normal, both eyes and all related structures Neck: Normal visual inspection Chest: Normal palpation of entire chest wall Respiratory: N ormal respiratory effort Neurology: Patient oriented x3, reports occasional lightheadedness when not hydrated. Results Plan - Will order Cologuard for colon cancer screening, given the patient is overdue and has a family history of colon cancer. - If the Cologuard test is positive, the patient has agreed to proceed with a colonoscopy. - Will order fasting blood work. - Patient to continue taking finasteride and tamsulosin for benign prostatic hyperplasia. - Patient to continue annual follow-up with his urologist. - Patient declined the influenza vaccine for this season. - Advised patient on the importance of maintaining adequate hydration. Discussion Notes I discussed the importance of colon cancer screening with the patient, especially given that he is overdue and has a family history of colon cancer in his father. We reviewed the options of Cologuard versus a traditional colonoscopy. The patient elected to proceed with the Cologuard test and understands that a positive result would necessitate a follow-up colonoscopy. I informed him that the Cologuard kit will be sent to him in the mail. I also ordered fasting lab work and advised him to have it done soon. The patient declined the flu shot, citing a preference for natural immunity. Patient Instructions - A Cologuard test kit for colon cancer screening will be sent to your home in the mail. - Please follow the instructions to collect a stool sample and mail it back. - If your Cologuard test comes back positive, you will need to schedule a colonoscopy for further evaluation. - Please go to the lab to have fasting blood work done. - Continue taking your prostate medications, finasteride and tamsulosin, as prescribed. - Continue to see your urologist, Dr. Maher, once a year. - Remember to drink plenty of water to avoid becoming lightheaded. (2) Annual physical exam: Code(s): Z00.00 - Encounter for general adult medical examination without abnormal findings Plan: As above
== END 2025-08-22 08:10 | disposition home or self-care (01) ==
LOC: HO.HMCH 07:37
PROVIDERS: PCP Internal Medicine; Visit Provider Internal Medicine
DX: Z00.00 Encounter for general adult medical examination without abnormal findings (principal); E78.00 Pure hypercholesterolemia, unspecified

== ENCOUNTER → 2025-08-22 07:36 | Outpatient (BNVA) | payer MEDICARE, SELFPAY | PROVIDERS: PCP Internal Medicine; Visit Provider Internal Medicine | DX: Z00.00 Encounter for general adult medical examination without abnormal findings (principal); E78.00 Pure hypercholesterolemia, unspecified; N40.0 Benign prostatic hyperplasia without lower urinary tract symptoms; R42 Dizziness and giddiness; Z79.899 Other long term (current) drug therapy | CPT/HCPCS: 96127; 99397 ==

== ENCOUNTER 2025-08-26 08:11 | Outpatient (REF) | payer MEDICARE, SELFPAY ==
--- OUTSIDE RECORDS SUMMARY | 2025-08-26 08:32 | XMS_ITS | Patient Health Record ---
Author Organization [facility] Address [address] [place] [address] Care Team Providers Care Airplane Inspector Name Role Phone PIPPA HURTADO Primary Care Provider Lalito Broussard Jr Unavailable Reason For Referral No Information Medications Medication SIG (Take, Route, Frequency, Duration) Notes Start Date End Date Status Colyte with Flavor Packs 240 GM As directed Orally Over the specified time.; Duration: 1 day(s) 11/11/2016 Active Problems Problem Type SNOMED Code ICD Code Onset Dates Problem Status W/U Status Risk Notes Problem Colon cancer screening (493602301) Colon cancer screening (V76.51) Active confirmed Problem Screening for malignant neoplasm of colon (667963033) Special screening for malignant neoplasms, colon (Z12.11) Active confirmed Plan Of Treatment Future Test Test Name Order Date COLONOSCOPY 11/11/2016 Insurance Providers Payer Name Payer Address Payer Phone Subscriber Number Group Number Insured Name Patient Relationship to Insured Coverage Start Date Coverage End Date [facility] [address] [place] [phone] [id number] RASHAD DELEON Self - patient is the insured Medical (General) History Medical History History ICD Code colonoscopy 02-27-2010 colon polyp hypertension benign prostatic hypertrophy transient global amnesia requiing a hosp ital evaluation Surgical History Surgery Date(Month/Year)
[2025-08-26 10:18] LABS: Appearance Urine Clear; Glucose Urine UA Negative (Negative); PH 7.0 (5.0-9.0); Specific Gravity - Urine <= 1.005 (1.005-1.025)
[2025-08-26 10:32] LABS: Hematocrit 47.0 % (42.0-52.0); Hemoglobin 15.5 g/dl (14.0-18.0); Mean Corpuscular HGB Conc 33.0 g/dl (31.0-36.0); Mean Corpuscular Hemoglobin 30.8 pg (27.0-33.0); Mean Corpuscular Volume 93.3 fL (80.0-98.0); NRBC Abs Auto 0.000 X10*3/uL (0.0-0.012); NRBC Pct Auto 0.0 /100WBC (0.0-0.2); Platelet Count 266 X10*3/uL (160-400); Red Blood Count 5.04 X10*6/uL (4.60-5.80); White Blood Count 6.5 X10*3/uL (4.8-10.8)
[2025-08-26 10:56] LABS: Alanine Aminotransferase 35 U/L (0-40); Albumin Level 4.5 g/dL (3.5-5.0); Alkaline Phosphatase 100 U/L (39-117); Anion Gap 11 (12-20); Aspartate Amino Transferase 47 U/L (5-37); Blood Urea Nitrogen 11 mg/dL (9-16); Calcium 9.7 mg/dL (8.4-10.2); Carbon Dioxide 28 mmol/L (22-29); Chloride 106 mmol/L (96-108); Cholesterol 258 mg/dL (<200); Estimated Glomerular Filt Rate > 60; HDL Cholesterol 60 mg/dL (>40); Potassium 3.9 mmol/L (3.3-5.1); Sodium 141 mmol/L (135-145); Total Protein 7.3 g/dL (6.5-8.0); Triglycerides 139 mg/dL (<150)
[2025-08-26 11:19] LABS: Thyroid Stimulating Hormone 1.28 uIU/mL (0.32-4.0)
== END 2025-08-26 08:12 | disposition home or self-care (01) ==
LOC: HO.HMGCLDS 08:11
PROVIDERS: PCP Internal Medicine; Visit Provider Internal Medicine
DX: Z12.5 Encounter for screening for malignant neoplasm of prostate (principal); E78.00 Pure hypercholesterolemia, unspecified
CPT/HCPCS: 36415; 80048; 80061; 80076; 81003; 84153; 84443; 85027